=== PATIENT | male | born 1980 | race Caucasian/White ===

== ENCOUNTER 2017-07-16 17:00 | Inpatient (IN) | payer SELFPAY ==
[~2017-07-16] VITALS: Ht 177.8 cm; Wt 79.4 kg
[2017-07-16 17:43] LABS: APPEARANCE CLEAR (CLEAR); BILIRUBIN NEGATIVE (NEGATIVE); COLOR DK YELLOW (YELLOW); GLUCOSE NEGATIVE (NEGATIVE); KETONE MODERATE mg/dL (NEGATIVE); LEUKOCYTE ESTERASE NEGATIVE (NEGATIVE); NITRITE NEGATIVE (NEGATIVE); PROTEIN TRACE mg/dL (NEGATIVE); SPECIFIC GRAVITY 1.025 (1.005-1.020); UROBILINOGEN NORMAL (NORMAL)
[2017-07-16 17:45] LABS: BACTERIA FEW /hpf (NONE SEEN)
[2017-07-16 17:46] LABS: MUCUS <1+ /lpf (NONE SEEN)
[2017-07-16 17:47] LABS: HEMATOCRIT 42.8 % (42.0-54.0); HEMOGLOBIN 15.3 g/dL (13.5-17.5); MCH 31.4 pg (26.0-34.0); MCHC 35.7 g/dL (31.0-37.0); MCV 87.9 fL (80.0-100.0); MEAN PLATELET VOLUME 9.7 fL (7.4-10.4); PLATELET COUNT 329 10x3/uL (130-400); RBC 4.87 10x6/uL (4.20-6.10); RDW 13.2 % (11.5-14.5); WBC 21.1 10x3/uL (4.8-10.8)
[2017-07-16 17:58] LABS: ALBUMIN 3.9 g/dL (3.4-5.0); ALKALINE PHOSPHATASE 84 U/L (46-116); ALT (SGPT) 19 U/L (10-68); AMYLASE - SERUM 19 U/L (25-115); CALC OSMOLALITY 273 mosm/kg (275-300); CALCIUM 9.7 mg/dL (8.5-10.1); CARBON DIOXIDE 27.2 mmol/L (21.0-32.0); CHLORIDE - SERUM 100 mmol/L (98-107); CREATININE - SERUM 1.1 mg/dL (0.6-1.3); GLUCOSE 113 mg/dL (74-106); LIPASE 137 U/L (73-393); POTASSIUM - SERUM 3.9 mmol/L (3.5-5.1); PROTEIN - SERUM 8.2 g/dL (6.4-8.2); SODIUM 137 mmol/L (136-145); UREA NITROGEN 11 mg/dL (7-18); eGFR NON AFRICAN AMERICAN 80 mL/min (90-120)
[2017-07-16 18:08] LABS: EOSINOPHILS 1 % (0-7); LYMPHOCYTES 13 % (15-50); MONOCYTES 4 % (2-11); NEUTROPHILS 77 % (40-80)
[2017-07-16 18:09] LABS: PLATELET ESTIMATE NORMAL
--- NOTE | 2017-07-16 21:25 | NUR ---
REC'D TO ROOM 2203 FROM ER ACCOMPANIED BY ER STAFF. RESP EVEN AND UNLABORED WITH NO DISTRESS NOTED. CAN EXPRESS NEEDS AND WANTS. C/O ABD PAIN RATING 6/10 ON PAIN SCALE. ASSESSMENT COMPLETED. C/L IN REACH AT BEDSIDE.
[2017-07-16 23:06] VITALS: BP 126/85; Ht 177.8 cm; Wt 79.4 kg
[2017-07-17] VITALS: BP 128/75
--- NOTE | 2017-07-17 00:28 | NUR ---
WAS MEDICATED WITH MORPHIN AT THIS TIME FOR C/O ABD PAIN. C/L IN REACH AT BEDSIDE.
--- NOTE | 2017-07-17 03:53 | NUR ---
CALLED WAS PLACED TO DR. BARRIOS D/T PT BEING FEBRILE AT THIS TIME OF 102.4/ REC'D NEW ORDERS FOR APAP 650 MG EVERY 4 HOURS PRN AND TO INCREASE FLUIDS FROM 50 ML/HR TO 125. PT WAS MEDICATED AT THIS TIME WITH APAP PER ORDERS. REMAIN AT BEDSIDE.
[2017-07-17 04:00] VITALS: BP 120/72
--- NOTE | 2017-07-17 07:15 | NUR ---
REPORT RECEIVED, ASSUMED CARE OF PT. C/O PAIN IN ABDOMEN, 07/31. WILL ADMINISTER PAIN MEDICATION ORDERED. NO OTHER COMPLAINTS AT THIS TIME. BED IN LOWEST POSITION, SIDE RAILS UP X 2, CALL LIGHT WITHIN REACH.
[2017-07-17 09:40] VITALS: BP 94/64
[2017-07-17 12:46] VITALS: BP 98/68
[2017-07-17 16:26] VITALS: BP 110/64
--- NOTE | 2017-07-17 18:48 | NUR ---
PT RESTING IN ROOM. NO COMPLAINTS AT THIS TIME. BED IN LOWEST POSITION, SIDE RAILS UP X 2, CALL LIGHT WITHIN REACH.
--- NOTE | 2017-07-17 19:46 | NUR ---
REC'D IN BED AWAKE AND ALERT. RESP EVEN AND UNLABORED WITH NO DISTRESS NOTED. CAN EXPRESS NEEDS AND WANTS. NO C/O PAIN OR DISCOMFORT NOTE OR VOICED. BUT C/O NAUSEA WAS MEDICATED WITH ZOFRAN 4 MG AT THIS TIME. ASSESSMENT COMPLETED. C/L IN REACH AT BEDSIDE.
[2017-07-17 20:00] VITALS: BP 114/76
--- NOTE | 2017-07-17 20:44 | NUR ---
WAS MEDICATED AT THIS TIME WITH APAP 650 MG D/T ELEVATED TEMP OF 102.4. WILL RECHECK TEMP FOR EFFECTIVENESS OF APAP IN 30 MINS. C/L IN REACH AT BEDSIDE.
[2017-07-18] VITALS: BP 123/75
--- NOTE | 2017-07-18 03:13 | NUR ---
CONTINUE TO REST WELL AT THIS TIME WITH NO C/O NOTED OR VOICED AT THIS TIME. FAMILY AT BEDSIDE. C/L IN REACH AT BEDSIDE.
--- NOTE | 2017-07-18 03:50 | NUR ---
RN NOTE: PT RESTING QUIELTY IN SUPINE POSITION WITH EYES CLOSED AND EASY RESPIRATIONS. IV IN JAZ FA PATENT WITH LR INFUSING AT 125 ML / HR. DILAUDID REHABILITATION PSYCHOLOGIST IN USE FOR PAIN CONTROL. WILL CONTINUE TO MONITOR FOR NEEDS.
[2017-07-18 04:00] VITALS: BP 122/73
[2017-07-18 04:45] LABS: BASOPHILS 0.1 % (0-2); EOSINOPHILS 0.5 % (0-7); HEMATOCRIT 36.5 % (42.0-54.0); HEMOGLOBIN 12.4 g/dL (13.5-17.5); IMMATURE GRANULOCYTES 0.3 % (0-5); LYMPHOCYTES 6.9 % (15-50); MCH 29.5 pg (26.0-34.0); MCV 86.9 fL (80.0-100.0); MEAN PLATELET VOLUME 10.2 fL (7.4-10.4); MONOCYTES 11.6 % (2-11); NEUTROPHILS 80.6 % (40-80); PLATELET COUNT 270 10x3/uL (130-400); RDW 13.1 % (11.5-14.5); WBC 18.2 10x3/uL (4.8-10.8)
[2017-07-18 05:00] LABS: CALC OSMOLALITY 261 mosm/kg (275-300); CALCIUM 8.8 mg/dL (8.5-10.1); CARBON DIOXIDE 25.5 mmol/L (21.0-32.0); CHLORIDE - SERUM 97 mmol/L (98-107); CREATININE - SERUM 0.9 mg/dL (0.6-1.3); GLUCOSE 91 mg/dL (74-106); POTASSIUM - SERUM 3.5 mmol/L (3.5-5.1); SODIUM 132 mmol/L (136-145); eGFR NON AFRICAN AMERICAN > 90 mL/min (90-120)
[2017-07-18 05:26] LABS: UREA NITROGEN 5 mg/dL (7-18)
--- NOTE | 2017-07-18 07:25 | NUR ---
ASSESSMENT PER FLOW SHEET.PT WITHOUT DISTRESS.STATES PAIN 8/10 SCALE TO ABDOMEN.INSTRUCTED RECREATION PROGRAMMER USE.FAMILY AT BEDSIDE.CALL LIGHT IN REACH.
[2017-07-18 08:09] VITALS: BP 105/56
--- NOTE | 2017-07-18 08:09 | NUR ---
CALLED TO PATIENT ROOM. C/O ITCHING AND RED WHELPS FROM HEAD TO TOE-NO SOB NOTED OR VOICED. DR BANKS PAGED
--- NOTE | 2017-07-18 11:56 | NUR ---
REMAINS WITHOUT NEEDS,WITHOUT DISTRESS.CALL LIGHT IN REACH
[2017-07-18 12:07] VITALS: BP 101/59
--- NOTE | 2017-07-18 15:45 | NUR ---
TOLERATING DIET. REMAINS WITHOUT DISTRESS.CALL LIGHT IN REACH
[2017-07-18 16:06] VITALS: BP 106/62
[2017-07-18 19:00] VITALS: BP 122/79
--- NOTE | 2017-07-18 19:40 | NUR ---
PATIENT RESTING IN BED AFTER TAKING A SHOWER. HOOKED PATIENT UP TO IV FLUIDS AND COMPLETED ASSESSMENT. PATIENT DENIES OTHER NEEDS AT THIS TIME. BED IN LOWEST POSITION AND CALL LIGHT WITHIN REACH. ENCOURAGED THE PATIENT TO CALL IF HE HAS OTHER NEEDS.
[2017-07-19] VITALS: BP 111/71
[2017-07-19 04:00] VITALS: BP 119/67
--- NOTE | 2017-07-19 07:50 | NUR ---
ASSESSMENT PER FLOW SHEET.PT WITHOUT DISTRESS.PAIN 5/10 TO ABDOMEN,INSTRUCTED WAGON WASHER USE.JUST HAD HEPI CLENS SHOWER.IV RE CONNECTED.CALL LIGHT IN REACH
[2017-07-19 08:58] VITALS: BP 120/73
--- NOTE | 2017-07-19 11:46 | NUR ---
Patient Name: LIANET JOSEPH Admission Status: ER Accout number: [id number] Admission Date: 07-16-2017 : 1980 Admission Diagnosis: Attending: PETTY BARRIOS Current LOS: 3 Anticipated DC Date: Planned Disposition: Home Primary Insurance: UNINSURED DISCOUNT PLAN Discharge Planning Comments: CM met with patient and (Justin) to assess discharge planning needs. Patient lives independently at home with his and child. Patient denies any use of HH or DME. He does not think that he will need any either. CM will continue to follow and assist as needed. PCP: [facility] [address] [place] () [phone] Paper Tube Machine Operator: Sherry Ambrosio * Is the patient Alert and Oriented? Yes 0 * How many steps to enter\exit or inside your home? 4 0 * PCP DARREN 0 * [facility] [address] [facility] * Preadmission Environment Home with Family 0 * ADLs Independent 0 * Equipment None 0 * List name and contact numbers for known caregivers / representatives who currently or will assist patient after discharge: JUSTIN () [phone] 0 * Community resources currently utilized None 0 * Additional services required to return to the preadmission environment? No 0 * Can the patient safely return to the preadmission environment? Yes 0 * Has this patient been hospitalized within the prior 30 days at any hospital? No 0 Grand Total: 0
[2017-07-19 13:07] VITALS: BP 130/85
--- NOTE | 2017-07-19 15:10 | NUR ---
REMAINS WITHOUT DISTRESS.STILL NPO FOR SURGERY TODAY.MONITOR FOR NEEDS
[2017-07-19 15:41] VITALS: BP 126/76
--- NOTE | 2017-07-19 18:05 | NUR ---
TO OR VIA BED
[2017-07-19 19:45] VITALS: BP 127/71
--- NOTE | 2017-07-19 19:50 | NUR ---
REC'D PATIENT FROM RECOVERY. PATIENT'S VITALS ARE WNL AND PATIENT HAS NO VISIBLE SIGNS OF DISTRESS. FAMILY AT BEDSIDE. PATIENT DENIES NEEDS AT THIS TIME. BED IN LOWEST POSITION AND CALL LIGHT WITHIN REACH. ENCOURAGED THE PATIENT TO CALL IF HE HAS NEEDS.
[2017-07-20 04:00] VITALS: BP 118/82
--- NOTE | 2017-07-20 07:00 | NUR ---
PT REC'D FROM [facility]. RESTING IN BED WATCHING TV. AAOX4. NO COMPLAINTS OF PAIN. STATES THAT HE IS JUST "SORE." X4 LAP SITES TO ABD ALL CDI. PIV TO L FOREARM FREE OF REDNESS AND SWELLING. BOWEL SOUNDS HYPOACTIVE X4 QUADS. BED LOW, CALL LIGHT IN REACH, DENIES NEEDS. CPOC.
[2017-07-20 08:36] VITALS: BP 129/57
--- NOTE | 2017-07-20 09:11 | NUR ---
MORNING MEDS PASSED AT THIS TIME. NICOTINE PATCH APPLIED TO R SHOULDER. BED LOW, CALL LIGHT IN REACH, DENIES NEEDS. CPOC.
[2017-07-20 12:15] VITALS: BP 122/63
[2017-07-20] MEDS ORDERED: HYDROCODONE-APA1 TAB PO (12:42)
[2017-07-20] MEDS ORDERED: CYCLOBENZAPRINE10 MG PO (12:43)
--- NOTE | 2017-07-20 12:43 | OP ---
PATIENT NAME: LIANET JOSEPH MEDICAL RECORD: [id number] :80 LOCATION:[facility] ADMISSION DATE:07/16/17 SURGEON: RAFFI BARRIOS MD DATE OF OPERATION: 07/19/2017 PREOPERATIVE DIAGNOSES: Acute cholecystitis. POSTOPERATIVE DIAGNOSIS: Acute cholecystitis. PROCEDURE: Laparoscopic cholecystectomy. SURGEON: Raffi Barrios MD. REPORT OF PROCEDURE: The patient's abdomen was prepped and draped in sterile fashion. A cutdown was made on the superior aspect of the umbilicus. A 0 Vicryls were placed in the fascia bilaterally and the fascia was incised with 15-blade. I then bluntly entered the peritoneal cavity and placed a 12-mm Grupo port. Under direct visualization, a 5 mm trocar was placed in the epigastrium and 2 more 5-mm trocars were placed in the right subcostal region. The gallbladder was grasped and elevated. There was noted to be significant inflammatory changes present at the gallbladder. The fatty tissue was teased down carefully with blunt dissection. We have aspirated the gallbladder because of its severe distention and removed clear fluid consistent with hydrops gallbladder. The cystic artery and cystic duct were dissected free and these were clipped proximally and distally and ligated in standard fashion. The gallbladder was then taken off the liver bed using electrocautery and placed into an Endo Catch bag. Any bleeding from the liver bed was then treated with electrocautery. We irrigated out the right upper quadrant and assured there was no sign of any bleeding or bile leakage. At this point, the ports and insufflation were then removed and the gallbladder was taken out through the umbilicus. The umbilical fascia was closed with interrupted 0 Vicryls times 4. The wounds were irrigated out with normal saline and infused with 10 mL of 0.25% Marcaine with epinephrine. The skin incisions were closed with subcutaneous 5-0 Monocryl and dressed appropriately. COMPLICATIONS: None. CONDITION: Stable. ANESTHESIA: General endotracheal and local. BLOOD LOSS: 50 mL. TRANSINT:[id number] Voice Confirmation ID: [id number] DOCUMENT ID: [id number] RAFFI BARRIOS MD at 1243 CC: [id number] DICTATION DATE: 07/19/171914 MAIL LIST LIBRARIAN: 07/19/17 2357 ADM IN [facility] [address] [place] [address]
--- NOTE | 2017-07-20 14:06 | NUR ---
GETTING DISCHARGED AT THIS TIME. REPORTS NO C/O PAIN OR DISCOMFORT. PAIN WELL MANAGED WHILE HERE. DENIES NEEDS.
--- NOTE | 2017-07-20 14:12 | NUR ---
DISCHARGE INSTRUCTIONS DISCUSSED AT THIS TIME. NO QUESTIONS OR CONCERNS VOICED. REVIEWED FOLLOW UP APPOINTMENTS AND PRESCRIPTIONS. PIV TO L FOREARM DC'D WITH CATHETER INTACT. PRESSURE AND DRESSING APPLIED. BED LOW, CALL LIGHT IN REACH. PACKING UP THINGS AND WILL ESCORT OUT VIA WC.
== END 2017-07-20 14:32 | disposition home or self-care (01) | DRG 419 ==
LOC: D.ER 17:00 → D.MS 19:46
PROVIDERS: Emergency Medicine; ADMIT Surgery
PROC: 0FT44ZZ Resection of Gallbladder, Percutaneous Endoscopic Approach (ICD-10-PCS; principal; 2017-07-19 11:30)
DX: K81.0 Acute cholecystitis (principal); L27.0 Generalized skin eruption due to drugs and medicaments taken internally; T36.0X5A Adverse effect of penicillins, initial encounter; F17.200 Nicotine dependence, unspecified, uncomplicated

== ENCOUNTER 2017-09-06 17:13 | Emergency (ER) | payer MEDICAID ==
[2017-07-16 23:06] VITALS: BMI 25.1
[~2017-09-06 17:13] MED LIST: CYCLOBENZAPRINE10 MG PO; HYDROCODONE-APA1 TAB PO
[2017-09-06 17:51] LABS: APPEARANCE CLEAR (CLEAR); BILIRUBIN NEGATIVE (NEGATIVE); COLOR YELLOW (YELLOW); GLUCOSE NEGATIVE (NEGATIVE); KETONE NEGATIVE (NEGATIVE); NITRITE NEGATIVE (NEGATIVE); PROTEIN NEGATIVE (NEGATIVE); SPECIFIC GRAVITY 1.015 (1.005-1.020); UROBILINOGEN NORMAL (NORMAL)
[2017-09-06 18:30] LABS: BASOPHILS 0.4 % (0-2); EOSINOPHILS 3.2 % (0-7); HEMATOCRIT 42.7 % (42.0-54.0); HEMOGLOBIN 13.8 g/dL (13.5-17.5); IMMATURE GRANULOCYTES 0.4 % (0-5); LYMPHOCYTES 19.2 % (15-50); MCH 29.6 pg (26.0-34.0); MCHC 32.3 g/dL (31.0-37.0); MCV 91.4 fL (80.0-100.0); MEAN PLATELET VOLUME 10.3 fL (7.4-10.4); MONOCYTES 6.3 % (2-11); NEUTROPHILS 70.5 % (40-80); RBC 4.67 10x6/uL (4.20-6.10); RDW 14.4 % (11.5-14.5); WBC 11.3 10x3/uL (4.8-10.8)
[2017-09-06 18:36] LABS: PLATELET COUNT 192 10x3/uL (130-400)
[2017-09-06 18:55] LABS: ALBUMIN 3.5 g/dL (3.4-5.0); ALKALINE PHOSPHATASE 78 U/L (46-116); ALT (SGPT) 21 U/L (10-68); AMYLASE - SERUM 32 U/L (25-115); BILIRUBIN - TOTAL 0.24 mg/dL (0.2-1.3); CALC OSMOLALITY 281 mosm/kg (275-300); CALCIUM 9.4 mg/dL (8.5-10.1); CARBON DIOXIDE 30.3 mmol/L (21.0-32.0); CHLORIDE - SERUM 107 mmol/L (98-107); CREATININE - SERUM 0.9 mg/dL (0.6-1.3); GLUCOSE 80 mg/dL (74-106); LIPASE 289 U/L (73-393); POTASSIUM - SERUM 3.4 mmol/L (3.5-5.1); PROTEIN - SERUM 7.2 g/dL (6.4-8.2); SODIUM 143 mmol/L (136-145); UREA NITROGEN 8 mg/dL (7-18); eGFR NON AFRICAN AMERICAN > 90 mL/min (90-120)
== END 2017-09-06 19:17 | disposition home or self-care (01) ==
LOC: D.ER 17:13
PROVIDERS: Family Medicine
DX: R07.89 Other chest pain (principal); S29.011A Strain of muscle and tendon of front wall of thorax, initial encounter; X58.XXXA Exposure to other specified factors, initial encounter; Y93.89 Activity, other specified; Y92.029 Unspecified place in mobile home as the place of occurrence of the external cause; F17.200 Nicotine dependence, unspecified, uncomplicated